=== PATIENT | female | born 1955 | race Asian ===

== ENCOUNTER 2019-06-16 15:22 | Emergency (ER) | payer MEDICARE, OTHER ==
[~2019-06-16] VITALS: Ht 165.1 cm; Wt 59.1 kg
[~2019-06-16 15:22] MED LIST: AMLO10TA7 PO; ASPI-556 PO; CITA10TA68 PO; COMBIH IH; LOSA50TA65 PO; METF-446 PO; OMEP20 PO; ZOLP5 PO
[2019-06-16] MEDS ORDERED: HYDR25TA PO (15:45)
[2019-06-16] MEDS ORDERED: DULA1.5P SQ (15:45)
[2019-06-16] MEDS ORDERED: INSU100V SQ (15:45)
[2019-06-16 15:49] LABS: GLUCOSE,POINT OF CARE 190 MG/DL (70-110)
[2019-06-16 16:09] LABS: BASOPHILS % (AUTO) 0.4 % (0.0-2.0); EOSINOPHILS % (AUTO) 1.4 % (1.0-6.0); HEMATOCRIT 36.1 % (36-46); HEMOGLOBIN 11.7 g/dL (12.0-16.0); LYMPHOCYTES # (AUTO) 2.7 K/uL (1.0-4.8); LYMPHOCYTES % (AUTO) 22.9 % (22.0-44.0); MEAN CORPUSCULAR HEMOGLOBIN 28.6 pg (26.0-34.0); MEAN CORPUSCULAR HGB CONC 32.5 G/dL (31.0-37.0); MEAN CORPUSCULAR VOLUME 88 fL (80-100); MONOCYTES # (AUTO) 0.7 K/uL (0.1-1.0); NEUTROPHILS # (AUTO) 8.3 K/uL (1.8-7.7); NEUTROPHILS % (AUTO) 69.3 % (40.0-70.0); PLATELET COUNT (AUTO) 399 K/uL (150-450); RED BLOOD CELL COUNT(AUTO) 4.09 MIL/uL (4.00-5.20); RED CELL DISTRIBUTION WIDTH 13.1 % (11.5-14.5)
[2019-06-16 16:31] LABS: CALCIUM, TOTAL 9.5 mg/dL (8.8-10.5); CREATININE 1.63 mg/dL (0.60-1.30); POTASSIUM 3.2 mmol/L (3.5-5.1)
[2019-06-16] MEDS: IBUPROFEN 600 MG TABLET PO ONE (16:35)
[2019-06-16] MEDS: ACETAMINOPHEN 325 MG TABLET PO ONE (16:35)
[2019-06-16 16:43] LABS: ALBUMIN 3.4 g/dL (3.4-5.0); BILIRUBIN,TOTAL 0.3 mg/dL (0.1-1.0); TOTAL PROTEIN, SERUM 7.5 g/dL (6.4-8.2)
[2019-06-16] MEDS: POTASSIUM CHLORIDE 20 MEQ ER TABLET PO ONE (17:01)
[2019-06-16] MEDS: SODIUM CHLORIDE 0.9% 1,000 ML IV ONE (17:01)
[2019-06-16 17:21] LABS: APPEARANCE,URINE CLEAR (CLEAR); BILIRUBIN,URINE NEGATIVE (NEGATIVE); GLUCOSE, URINE (UA) NEGATIVE (NEGATIVE); KETONES,URINE NEGATIVE (NEGATIVE); LEUKOCYTE ESTERASE ,URINE NEGATIVE (NEGATIVE); NITRATE,URINE NEGATIVE (NEGATIVE); OCCULT BLOOD,URINE NEGATIVE (NEGATIVE); PROTEIN,URINE NEGATIVE (NEGATIVE); UROBILINOGEN,URINE 0.2 mg/dL (<=1.0)
[2019-06-16 17:33] VITALS: BP 123/75
== END 2019-06-16 18:13 | disposition home or self-care (01) ==
LOC: EMS 15:24
DX: G57.01 Lesion of sciatic nerve, right lower limb (principal); R35.0 Frequency of micturition; E11.9 Type 2 diabetes mellitus without complications; E78.00 Pure hypercholesterolemia, unspecified; I10 Essential (primary) hypertension; J45.909 Unspecified asthma, uncomplicated; F41.9 Anxiety disorder, unspecified; Z90.49 Acquired absence of other specified parts of digestive tract; Z90.710 Acquired absence of both cervix and uterus; Z79.4 Long term (current) use of insulin; Z79.899 Other long term (current) drug therapy
CPT/HCPCS: 36415; 73502; 80053; 81002; 81003; 82962; 84702; 85025; 99284; J7030

== ENCOUNTER 2021-08-10 22:00 | Emergency (ER) | payer MEDICARE, OTHER ==
[~2021-08-10] VITALS: Ht 165.1 cm; Wt 56.8 kg
[~2021-08-10 22:00] MED LIST changes: +AMLO-258 PO; -AMLO10TA7 PO; -CITA10TA68 PO; +CITA10TA99 PO; +DULA1.5P SQ; +HYDR25TA2 PO; +INSU100V SQ; +ZOLP-280 PO; -ZOLP5 PO
[2021-08-10] MEDS ORDERED: IBUPROFEN 400 MG TABLET PO ONE (22:45)
[2021-08-10 23:22] LABS: BASOPHILS % (AUTO) 0.6 % (0.0-2.0); EOSINOPHILS % (AUTO) 1.9 % (1.0-6.0); HEMATOCRIT 37.6 % (36-46); HEMOGLOBIN 12.3 g/dL (12.0-16.0); LYMPHOCYTES # (AUTO) 2.9 K/uL (1.0-4.8); LYMPHOCYTES % (AUTO) 25.7 % (22.0-44.0); MEAN CORPUSCULAR HEMOGLOBIN 28.3 pg (26.0-34.0); MEAN CORPUSCULAR HGB CONC 32.6 G/dL (31.0-37.0); MEAN CORPUSCULAR VOLUME 87 fL (80-100); MONOCYTES # (AUTO) 0.7 K/uL (0.1-1.0); MONOCYTES % (AUTO) 6.2 % (2.0-9.0); NEUTROPHILS # (AUTO) 7.4 K/uL (1.8-7.7); NEUTROPHILS % (AUTO) 65.6 % (40.0-70.0); PLATELET COUNT (AUTO) 377 K/uL (150-450); RED BLOOD CELL COUNT(AUTO) 4.33 MIL/uL (4.00-5.20); RED CELL DISTRIBUTION WIDTH 13.3 % (11.5-14.5)
[2021-08-10 23:28] LABS: APPEARANCE,URINE CLEAR (CLEAR); BILIRUBIN,URINE NEGATIVE (NEGATIVE); GLUCOSE, URINE (UA) 250 mg/dL (NEGATIVE); KETONES,URINE NEGATIVE (NEGATIVE); LEUKOCYTE ESTERASE ,URINE NEGATIVE (NEGATIVE); NITRATE,URINE NEGATIVE (NEGATIVE); OCCULT BLOOD,URINE TRACE (NEGATIVE); PH,URINE 6.5 (5.0-8.0); PROTEIN,URINE SEE CONFIRM (NEGATIVE); UROBILINOGEN,URINE 0.2 mg/dL (<=1.0)
[2021-08-10 23:30] LABS: CALCIUM, TOTAL 8.9 mg/dL (8.8-10.5); CREATININE 1.47 mg/dL (0.60-1.30); POTASSIUM 3.9 mmol/L (3.5-5.1)
[2021-08-10 23:36] LABS: INR 0.9 (0.9-1.1); PROTHROMBIN TIME 9.9 SEC (9.4-11.6)
[2021-08-10 23:36] LABS: SULFOSALICYLIC ACID,URINE 2+ (Negative)
[2021-08-10 23:37] LABS: BACTERIA,URINE Rare /HPF (None Seen); SQUAMOUS EPITHELIAL CELL,UR Few /LPF (None Seen); WBC,URINE 0-2 /HPF (0-5)
[2021-08-10 23:55] LABS: ALBUMIN 3.5 g/dL (3.4-5.0); BILIRUBIN,TOTAL 0.3 mg/dL (0.1-1.0); TOTAL PROTEIN, SERUM 7.3 g/dL (6.4-8.2)
[2021-08-11 00:32] LABS: ERYTHROCYTE SEDIMENTATION RATE 37 MM/HR (0-20)
[2021-08-11 01:21] LABS: C-REACTIVE PROTEIN QUANT 0.48 mg/dL (0.00-0.30)
[2021-08-11] MEDS ORDERED: PredniSONE 20 MG TABLET PO ONE (02:15)
[2021-08-11 02:30] VITALS: BP 143/80
== END 2021-08-11 02:46 | disposition home or self-care (01) ==
LOC: EMS 22:02
DX: R51.9 Headache, unspecified (principal); J45.909 Unspecified asthma, uncomplicated; F41.9 Anxiety disorder, unspecified; E11.9 Type 2 diabetes mellitus without complications; E78.00 Pure hypercholesterolemia, unspecified; I10 Essential (primary) hypertension; I49.3 Ventricular premature depolarization; R79.1 Abnormal coagulation profile
CPT/HCPCS: 36415; 71045; 80053; 81001; 82550; 82962; 83735; 83880; 84484; 85025; 85610; 85651; 85730; 86140; 93005; 99285; J7512; 81002